=== PATIENT | female | born 1950 | race Caucasian/White ===

== ENCOUNTER → 2020-09-04 | Outpatient (CLI) | payer MEDICARE | LOC: CT 13:33 | DX: R10.13 Epigastric pain (principal); K74.60 Unspecified cirrhosis of liver; R16.1 Splenomegaly, not elsewhere classified | CPT/HCPCS: 36415; 74160; 82565; Q9967 ==

== ENCOUNTER → 2020-09-21 | Outpatient (CLI) | payer MEDICARE ==
[2020-09-21 15:58] LABS: HEMOGLOBIN 10.1 gm/dl (12.3-15.3); RED BLOOD COUNT 3.79 M/UL (4.00-5.10)
[2020-09-21 16:21] LABS: BUN/CREATININE RATIO 13 (0-10)
[2020-09-22 06:10] LABS: HIV SCREEN 4TH GENERATION WRFX Non Reactive (Non Reactive)
[2020-09-22 07:10] LABS: CERULOPLASMIN 35.6 mg/dL (19.0-39.0); HBSAG SCREEN Negative (Negative); HEP A AB, IGM Negative (Negative); HEP B CORE AB, IGM Negative (Negative); HEP C VIRUS AB <0.1 (0.0-0.9); HEPATITIS B SURF AB QUANT 15.1 mIU/mL (Immunity>9.9); IMMUNOGLOBULIN A, QN, SERUM 143 mg/dL (87-352); IMMUNOGLOBULIN G, QN, SERUM 2906 mg/dL (586-1602); IMMUNOGLOBULIN M, QN, SERUM 228 mg/dL (26-217)
[2020-09-22 13:13] LABS: ACTIN (SMOOTH MUSCLE) ANTIBODY 42 Units (0-19); MITOCHONDRIAL (M2) ANTIBODY <20.0 Units (0.0-20.0)
[2020-09-24 12:11] LABS: LIVER-KIDNEY MICROSOMAL AB 1.1 Units (0.0-20.0)
[2020-09-24 17:11] LABS: ALPHA-1-ANTITRYPSIN, SERUM 197 mg/dL (101-187)
[2020-09-25 16:11] LABS: SOLUBLE LIVER AG (IGG AB) 2.1 units (0.0-20.0)
== END ==
LOC: LAB 13:47
PROVIDERS: Nurse Practitioner Acute Care
DX: K74.60 Unspecified cirrhosis of liver (principal)
CPT/HCPCS: 36415; 80053; 80074; 82103; 82104; 82105; 82390; 82728; 82784; 83516; 83540; 83550; 85027; 85610; 86038; 86317; 86376; 86708; 87389

== ENCOUNTER → 2021-01-04 | Outpatient (CLI) | payer MEDICARE ==
[2021-01-04 17:28] LABS: HEMOGLOBIN 10.9 gm/dl (12.3-15.3); RED BLOOD COUNT 4.03 M/UL (4.00-5.10); WHITE BLOOD COUNT 6.3 K/UL (4.5-11.0)
[2021-01-04 17:55] LABS: BUN/CREATININE RATIO 10 (0-10)
== END ==
LOC: LAB 16:01
PROVIDERS: Nurse Practitioner Acute Care
DX: K74.69 Other cirrhosis of liver (principal); E87.5 Hyperkalemia
CPT/HCPCS: 36415; 80053; 85027; 85610; 93005

== ENCOUNTER → 2021-05-10 | Outpatient (CLI) | payer MEDICARE | LOC: CT 13:14 | DX: R16.2 Hepatomegaly with splenomegaly, not elsewhere classified (principal); K76.0 Fatty (change of) liver, not elsewhere classified; R91.1 Solitary pulmonary nodule | CPT/HCPCS: 36415; 74160; 82565; Q9967 ==

== ENCOUNTER → 2021-07-19 | Outpatient (CLI) | payer MEDICARE | LOC: HEART 5 09:32 | DX: R91.1 Solitary pulmonary nodule (principal); G47.33 Obstructive sleep apnea (adult) (pediatric); K74.69 Other cirrhosis of liver; K75.4 Autoimmune hepatitis; Z87.891 Personal history of nicotine dependence | CPT/HCPCS: 94010 ==

== ENCOUNTER → 2021-11-10 | Outpatient (CLI) | payer MEDICARE ==
[2021-11-10 14:34] LABS: BUN/CREATININE RATIO 15 (0-10)
== END ==
LOC: LAB 13:48
PROVIDERS: Family Medicine
DX: E11.65 Type 2 diabetes mellitus with hyperglycemia (principal)
CPT/HCPCS: 36415; 80053; 80061; 83036

== ENCOUNTER → 2021-11-28 | Outpatient (CLI) | payer MEDICARE | LOC: MAMO 11-27 13:30 | DX: Z12.31 Encounter for screening mammogram for malignant neoplasm of breast (principal); Z78.0 Asymptomatic menopausal state | CPT/HCPCS: 77063; 77067 ==

== ENCOUNTER → 2021-12-26 | Outpatient (CLI) | payer MEDICARE ==
[2021-12-26 17:34] LABS: BUN/CREATININE RATIO 17 (0-10)
== END ==
LOC: LAB 16:33
PROVIDERS: Family Medicine
DX: E87.5 Hyperkalemia (principal)
CPT/HCPCS: 36415; 80048